=== PATIENT | male | born 1950 | race Caucasian/White ===

== ENCOUNTER 2024-03-14 05:49 | Day surgery (SDC) | payer MEDICARE, BC, SELFPAY ==
--- NOTE | 2024-02-27 13:12 | EKG12_ITS ---
Test Reason : PREOP Blood Pressure : / mmHG Vent. Rate : 062 BPM Atrial Rate : 062 BPM P-R Int : 154 ms QRS Dur : 082 ms QT Int : 416 ms P-R-T Axes : 038 -03 019 degrees QTc Int : 422 ms Sinus rhythm with Premature atrial complexes Otherwise normal ECG Confirmed by MAXWELL HARTMANN, CHANEL ([id number]), international editorial producer OSEAS SEPULVEDA ([id number]) on 02/28/2024 5:54:26 AM Referred By: Javi Lancaster Confirmed By:CHANEL ARREOLA MD
[2024-03-14] VITALS (11 sets, daily range): BP systolic 129–140; BP diastolic 65–86; PULSE 51–56; RESP 16; TEMP 36.1; O2SAT 92–100; BMI 28.0
[2024-03-14] MEDS: Lactated Ringers 1,000 ML 15 ML IV (06:24)
--- NOTE | 2024-03-14 06:50 | PCM.HP.BLA ---
History and Physical Date of Admission: 03/14/24 Intake Vital Signs 01/18/2413:28 Height 6 ft 1 in Weight: 213 lb BMI 28.0 BP 139/79 H Blood Pressure Location Rt brachial Position Sitting Respiration 18 Pulse 68 Pulse Source Monitor Pulse Oximetry (%) 96 Oxygen Delivery Method room air Intake Visit Reasons: Hernia Chief Complaint: Bilateral inguinal hernias Special Projects Manager Required: No Accompanied by: Is patient in pain?: No Allergies No Known Allergies Allergy (Unverified 01/19/24 13:30) Medications ?Medication ?Instructions ?Recorded ?Confirmed ?Type NK 01/19/24 01/19/24 History PFSH Medical History (Updated 01/19/24 @ 13:[address] Javi Lancaster MD) Bilateral inguinal hernia Gout Surgical History (Updated 01/19/24 @ 13:27 by Cynthia Reece) History of cataract surgery History of umbilical hernia repair History of appendectomy Social History (Updated 01/19/24 @ 13:28 by Cynthia Reece) Smoking Status: Never smoker alcohol intake: never substance use type: does not use HPI HPI HPI: Patient is a 73-year-old male here for right inguinal bulging. He has had a history of umbilical hernia repair as well as ventral hernia repair with mesh. He has been having bulging in the right groin for several years. He has been getting worse over the last 6 months and especially over the last 2. It does gurgle when he reduces it. He denies nausea or vomiting or fevers or chills. ROS General General: No weight change, appetite, fatigue, colon cancer, breast cancer or weakness HEENT HEENT: Yes eye surgery; No difficulty swallowing, eye injury, swollen glands or hoarseness Endo Endocrine: No thyroid disease, diabetes mellitus, thyroid cancer, Hair loss, heat intolerance or cold intolerance Skin Skin: No rash or changing moles Breast Breast: No left breast lump, right breast lump, nipple discharge, breast pain, abnormal mammogram, abnormal US or breast enlargement Musc Musculoskeletal: Yes gout; No back problems, arthritis, rheumatoid arthritis or joint pain Cardio Cardiovascular: No murmur, pacemaker, heart disease, atrial fibrillation, high blood pressure, heart attack, heart stent, palpitations, shortness of breat with exertion or chest pain Psych Psychiatric: No depression, anxiety or hearing voices Resp Respiratory: No shortness of breath, No sleep apnea, No cough, No COPD, No asthma, No emphysema and No wheezing Gastro Gastrointestinal: No abdominal pain, No nausea or vomiting, No diarrhea, No constipation, No blood in stool, No acid reflux, No hemorrhoids, No ulcers, No gallbladder problem and No black,tarry stools Rob Hematologic: No blood thinners, No blood disorders, No bleeding, No anemia and No blood clots Neuro Neurologic: No system reviewed and no additional complaints, except as documented, No as per HPI, No abnormal gait, No abnormal hearing, No abnormal movements, No abnormal speech, No behavioral changes, No burning sensations, No confusion, No convulsions, No disequilibrium, No dizziness, No localized weakness, No frequent falls, No headache(s), No lack of coordination, No loss of vision, No memory loss, No numbness, No other visual disturbances, No radicular pain, No restless legs, No sensory deficit, No syncope, No tingling, No tremor(s), No weakness and No other Exam Const General: cooperative Orientation: alert and oriented x3 [facility] Head: normal to inspection Neck Neck: normal visual inspection and full ROM Chest Chest palpation & inspection: normal inspection of the chest Resp Effort & Inspection: normal respiratory effort Auscultation: clear to auscultation bilaterally Cardio Rate: regular rate Rhythm: regular rhythm GI Inspection: non-distended Palpation: soft, hernia indirect inguinal on the right and nontender Skin General: no rashes or lesions noted Neuro General: patient alert and patient oriented x3 Extrem General: full ROM Psych Appearance: grossly normal Mental Status: mental status grossly normal Assessment and Plan Assessment and Plan (1) Right inguinal hernia: Status: Acute Plan: The patient has a reducible right inguinal hernia. I was not able to palpate a left inguinal hernia but this was shown on his CT scan. May be a cord lipoma. The patient also said he was having bulging at the site of his old ventral hernia but this appears to be diastases. I do not feel hernia defect or anything that is reducible in the upper abdomen. I discussed laparoscopic robot assisted right inguinal hernia repair with mesh. I discussed the procedure in detail as well as mesh placement. I discussed the risks such as bleeding, infection, injury to underlying organs, need for open repair if there is too much scar tissue, injury to the testicular blood supply. I also discussed having to possibly convert to open surgery if there is too much. Tissue from his old surgeries to proceed laparoscopically. Javi Lancaster MD Pager: [facility] [address] [place] [address] [address] [place] [address] Office: I have examined the patient and the H&P has been reviewed. There are no clinical changes since date of exam.
--- NOTE | 2024-03-14 06:59 | PRE.ANES_ITS ---
ASA Classification* ASA Classification ASA Classification: 2 Assessment & Plan Anesthesia* Anesthesia Assessment Anesthesia Assessment: Discussed sedation and/or anesthesia options, risks, benefits, and alternatives with patient/parents/legal guardian/POA. Questions invited. The patient/parents/legal guardian/POA seems to understand and agrees to proceed with anesthesia plan. Reviewed the physical assessment, medical history, allergy history and patient home medications list prior to surgery/procedure/anesthetic and documented any changes. Performed airway and anesthesia risk assessments. Anesthesia Type Anesthesia Type: General (*see written pre anesthesia record for full assessment) Anesthesia Focused Assessment* Temperature: 97 F Pulse Rate: 52 Blood Pressure: 129/75 Respiratory Rate: 16 Pulse Ox: 97 Airway Assessment Mouth opens: 2 cm Mallampati Score: II Focused Labs Anesthesia Preop lab: CBC CHEMISTRY COAG Pre-Assessment Diagnosis/Proposed Procedure Planned Operative Procedure(s): (R) Lap Robotic Right Inguinal Hernia poss bilateral w/mesh Anesthesia History Anesthesia History - carrier blower: Anesthesia History - carrier blower Hx Hospitalization No 02/20/24 14:19 Any Problems With Anesthesia No 02/20/24 14:19 Cholinesterase deficiency No 02/20/24 14:19 You/Your Family Experience No 02/20/24 14:19 fever (hyperthermia) with Relationship Recent Exposure to Contagious No 03/14/24 06:16 Disease Does patient have nerve No 02/20/24 14:19 stimulator Patient instructed to have device shut off --Does patient have Pacemaker No 03/14/24 06:16 or ICD? When Was Last Pacemaker Check QUESTION #4 FULL TEXT: You/Your Family Experience fever (hyperthermia) with Anesthesia Last Oral Intake Last Oral intake: Last Oral Intake NPO since 00:00 03/14/24 06:16 Meds taken in AM with sips of water? Meds patient instructed to take am of surgery PONV PONV - carrier blower: PONV - carrier blower Female No 02/20/24 14:19 HX of Motion Sickness No 02/20/24 14:19 HX of N/V After Surgery No 02/20/24 14:19 Non-Smoker Yes 02/20/24 14:19 Duration of Surgery greater Yes 02/20/24 14:19 than 60 minutes Number of Risk Factors 2 02/20/24 14:19 PONV Score Moderate Risk 02/20/24 14:19 Height & Weight Height & Weight: Anesthesia: Height & Weight Height 6 ft 1 in 03/14/24 06:16 Weight: 96.615 kg 03/14/24 06:16 Body Mass Index (BMI) 28.0 03/14/24 06:16 Respiratory Assessment Respiratory Assessment - carrier blower: Respiratory Tract Infection Hx - carrier blower Hx Respiratory Tract Infection No 02/20/24 14:19 STOP Sleep Apnea STOP Sleep Apnea - carrier blower: STOP Sleep Apnea - carrier blower Hx Hypertension No 02/20/24 14:19 Hx Sleep Apnea No 02/20/24 14:19 CPAP BIPAP Do you snore loudly (louder Yes 02/20/24 14:19 than talking or can be heard Do you often feel tired/ No 02/20/24 14:19 fatigued/ sleepy during daytime? Has anyone observed you stop Yes 02/20/24 14:19 breathing during sleep? STOP Results Positive 02/20/24 14:19 QUESTION #5 FULL TEXT : Do you snore loudly (louder than talking or can be heard through closed doors)? Tobacco Use History Tobacco Use History - carrier blower: Tobacco Use History - carrier blower Tobacco Use Smoking Status Never smoker 02/20/24 14:19 Hx Tobacco Use No 02/20/24 14:19 Years Smoking Packs Smoked per Day Smoking Cessation Date was within the last 15 years Hx Smoking Cessation Date Hx Smoking Cessation Counseling Hematologic Medial History Hematologic Hx - carrier blower: Hematologic Medical Hx - clinical documentation nurse Hx of Blood Transfusion No 02/20/24 14:19 Hx of Transfusion in last 3 No 02/20/24 14:19 Months Date of Last Transfusion (if within last 3 months) Ever experience any problems No 02/20/24 14:19 with transfusion(s)? Specify any problems Hx of Preganancy in last 3 N/A 02/20/24 14:19 Months Nurse Filling Out Transfusion VCHRISTIN 02/20/24 14:19 & Questions: Date: 02/20/24 02/20/24 14:19 Time: 14:20 02/20/24 14:19 Patient unable to answer at this time (ie. confused, unrespo /Reproduction History /Reproductive History - carrier blower: /Reproductive Hx- carrier blower Hx Now Gestational Age (in weeks): EDC: Hx Hx Para Hx Section SAB Active Medications Active Medications: Current Medications Generic Name Dose Route Start Last Admin Trade Name Porfirio PRN Reason Stop Dose Admin Cefazolin Sodium 2 gm/ Sodium 110 mls @ 150 mls/hr 03/14/24 07:30 Chloride IV 03/14/24 08:13 PREOP ONE Lactated Ringer's 1,000 mls @ 15 mls/hr 03/14/24 06:00 03/14/24 06:24 IV 15 mls/hr .Q48H BOSSMAN Administration PFSH Medical History Wears glasses History of Clostridium difficile infection Arthritis Injury of back Non-smoker History of stress test Bilateral inguinal hernia Gout Home Medications ?Medication ?Instructions ?Recorded ?Last Taken ?Type NK 01/19/24 Unknown History Allergy/AdvReac Type Severity Reaction Status Date / Time No Known Allergies Allergy Verified 03/14/24 06:14 Surgical History History of cataract surgery History of umbilical hernia repair History of appendectomy Social History Smoking Status: Never smoker alcohol intake: never substance use type: does not use Review of Systems (Anesthesia) ROS Narrative System reviewed and no additional complaints, except as documented.
[2024-03-14] MEDS: Cefazolin 2 GM in 0.9% Normal Saline (100mL Bag) 100 ML IV (07:30)
[2024-03-14] MEDS: Bupivacaine Mpf 0.5% 30 ML VIAL (08:31)
--- NOTE | 2024-03-14 08:42 | OP.PCM_ITS ---
Report of Operation Date of Procedure: 03/14/24
--- NOTE | 2024-03-14 08:42 | PCM.OPRPT ---
Report of Operation Date of Procedure: 03/14/24 Pre-Operative Diagnosis: Right inguinal hernia Post-Operative Diagnosis: Same Surgery/Procedure Performed:: Robotic assisted laparoscopic right inguinal hernia repair with mesh Type of Anesthesia: General/Regional Specimen's removed: None Estimated Blood Loss (mL): 5 Description of Procedure: Patient brought back to the operating room and general anesthesia was induced. The abdomen was prepped and draped in usual sterile fashion. Midline incision was made superior to his prior hernia site. The fascia was grasped and elevated and sharply incised. 12 mm port was placed into the abdomen and the abdomen is insufflated. The abdomen was inspected with the camera and there were no injuries from entry and there were no scar tissue adhesions to the ventral hernia mesh. Under direct visualization a right lateral 8 mm port was placed as well as a left lateral 8 mm port and the robot was docked after pacing the patient in steep Trendelenburg position. The patient's inguinal regions were inspected and the patient only had a right inguinal hernia containing colon. The patient did not have a left inguinal hernia. There is also some scar tissue to the ascending colon which was taken down with electrocautery scissors. Once the hernia was able to be identified I was not able to reduce the contents as it was a sliding hernia containing colon wall. The peritoneum was incised using electrocautery scissors. Dissection was carried inferiorly and the hernia was reduced from its adhesions. Dissection was carried medially and inferiorly and once the hernia was cleanly dissected a ProGrip mesh was placed over it and unfolded. There was good coverage and then the peritoneum was reapproximated using a running 3 OV lock suture. The entire mesh was covered by peritoneum at the end of the case. The colon was inspected and appeared healthy. Next the ports were removed and the abdomen was allowed to desufflate. The midline fascia was closed with a [id number] 0 Vicryl suture. All the incisions were injected with local anesthetic and closed with interrupted 4-0 Monocryl sutures. Steri-Strips and bandages were applied. Patient was brought to PACU and tolerated the procedure well. Scrotum was checked at the end the case and contained both testicles. Grafts/Implants Used: ProGrip mesh in the right groin Admit VTE Documentation VTE Mechan Device Prophylaxis: SCD's
--- NOTE | 2024-03-14 08:47 | EX.PCM.DISCH ---
Discharge Instructions Procedure Hernia Diet Discharge Diet: Light diet - advance as tolerated Activity Discharge Activity: May Not Drive (for 2-3 days or while taking narcotic pain meds.) and May Shower (with the bandage in place 1-2 days after surgery.) Lifting Restrictions: 20 pounds for 4 weeks. Additional Activity Instructions:: Climbing stairs is fine, walking is encouraged. Sitting in bed may be uncomfortable. Sitting up using your lateral muscles (sitting up sideways) is usually more comfortable. Do not drive, work heavy equipment of sign legal documents for 24 hours. If your hernia repair was an inguinal repair, you may have scrotal swelling, an ice pack and/or athletic support can provide more comfort. Pain medications may cause nausea, you should typically eat light foods as you take your pain medications. Pain medications may also cause constipation. If you have difficulty with this, discuss with your doctor. Alternate ibuprofen and Tylenol for pain control, oxycodone for breakthrough pain. Dressing / Incision Call your doctor if your incision/area has: Continuous Slow Oozing, Sudden Increased Bleeding, Increased Pain/ Swelling, Increased Redness and Foul Smelling Discharge Call your doctor if you observe: Fever of 101 or Higher Suture Line Care: Avoid Pulling/Pushing and Avoid Pinching/Bending Remove Dressing in: 2 days (Remove clear bandages in 2 days, remove Steri-Strips in 7 to 10 days.) Follow Up Care Please Follow Up With: Javi Lancaster MD When: Please call to schedule 2 week follow up appointment. [phone] Test Results: Test results from this visit will be discussed in further detail at your follow-up appointment, if applicable. Discharge Plan Admission Attending Provider: Javi Lancaster Primary Care Provider: Lincoln Estrella Instructions Print Language: Malawian Discharge Orders/Prescriptions Prescriptions: New oxycodone 5 mg Tablet 5 - 10 mg PO Q4H PRN PRN (Reason: Pain Score 4-10) 5 Days Qty: 10 0RF No Action NK Referrals / Follow Up: Lincoln Estrella MD [Primary Care Provider] - Disposition Disposition (needs filled in before D/C Order can be placed): Home, Self Care
--- NOTE | 2024-03-14 08:48 | PCM.POST.ANE ---
Anesthesia: Postop Eval I Current Vital Signs Temperature: 97 F Pulse Rate: 54 Blood Pressure: 138/83 Respiratory Rate: 16 Pulse Ox: 99 Oxygen Delivery Method: Simple Mask Oxygen Flow Rate (L/min): 6 Assessment Airway patent: Yes Spontaneous unlabored respirations: Yes Mental status: Awake and Calm nausea: No Vomiting: No Anesthesia Complication: No Fluid Hydration Crystalloid volume administer (ml): 1,000 Total IV fluid infused: 1,000 Progress Note Anesthesia document: Postop Eval 1 completed: Yes
--- NOTE | 2024-03-14 09:06 | POSTOPAN2_ITS ---
Anesthesia Postop Eval I Sum Postop Eval Completion status Anesthesia document: Postop Eval 1 completed: Yes Anesthesia Postop Eval I Summary Anesthesia Postop Eval I Summary: Anesthesia Postop Eval I: Assessment Summary Airway patent Yes 03/14/24 08:49 DAY CARE PROVIDER.[email or web address] Spontaneous unlabored Yes 03/14/24 08:49 DAY CARE PROVIDER.LORENA respirations Mental status Awake,Calm 03/14/24 08:49 DAY CARE PROVIDER.[email or web address] nausea No 03/14/24 08:49 DAY CARE PROVIDER.[email or web address] Vomiting No 03/14/24 08:49 DAY CARE PROVIDER.ISAIASOBHerbert Anesthesia Postop Eval I: Fluid Summary Crystalloid volume administer 1,000 03/14/24 08:49 DAY CARE PROVIDER.SKOBY (ml) Colloids volume administered ( ml) Blood Product volume administered (ml) Total IV fluid infused 1,000 03/14/24 08:49 DAY CARE PROVIDER.LORENA Anesthesia Postop Eval I: Summary Notes Anesthesia Complication No 03/14/24 08:49 DAY CARE PROVIDER.LORENA Anesthesia Complication Comment: Post-operative progress note Anesthesia: Postop Eval II Evaluation Mental status: Awake and Calm Pain Level: 2 nausea: No Vomiting: No Complications Anesthesia Complication: No
--- NOTE | 2024-03-14 09:06 | PCM.POSTANE2 ---
Anesthesia Postop Eval I Sum Postop Eval Completion status Anesthesia document: Postop Eval 1 completed: Yes Anesthesia Postop Eval I Summary Anesthesia Postop Eval I Summary: Anesthesia Postop Eval I: Assessment Summary Airway patent Yes 03/14/24 08:49 MASTER SONAR TECHNICIAN.[email or web address] Spontaneous unlabored Yes 03/14/24 08:49 MASTER SONAR TECHNICIAN.LORENA respirations Mental status Awake,Calm 03/14/24 08:49 MASTER SONAR TECHNICIAN.SKOBY nausea No 03/14/24 08:49 MASTER SONAR TECHNICIAN.[email or web address] Vomiting No 03/14/24 08:49 MASTER SONAR TECHNICIAN.ISAIASOBHerbert Anesthesia Postop Eval I: Fluid Summary Crystalloid volume administer 1,000 03/14/24 08:49 MASTER SONAR TECHNICIAN.SKOBY (ml) Colloids volume administered ( ml) Blood Product volume administered (ml) Total IV fluid infused 1,000 03/14/24 08:49 MASTER SONAR TECHNICIAN.LORENA Anesthesia Postop Eval I: Summary Notes Anesthesia Complication No 03/14/24 08:49 MASTER SONAR TECHNICIAN.LORENA Anesthesia Complication Comment: Post-operative progress note Anesthesia: Postop Eval II Evaluation Mental status: Awake and Calm Pain Level: 2 nausea: No Vomiting: No Complications Anesthesia Complication: No
== END 2024-03-14 13:29 | disposition home or self-care (01) ==
LOC: SDC 05:51 → AC 05:52
PROVIDERS: PCP Family Medicine; Referring Provider Surgery; Visit Provider Surgery
PROC: (CPT 49650; principal; 2024-03-14 07:10)
DX: K40.90 Unilateral inguinal hernia, without obstruction or gangrene, not specified as recurrent (principal); Z90.49 Acquired absence of other specified parts of digestive tract
CPT/HCPCS: 49650; S2900; 00840; 93005; J7120; J2405